=== PATIENT | male | born 1960 | race Caucasian/White ===

== ENCOUNTER 2019-07-10 00:06 | Day surgery (SDC) | payer OTHER, SELFPAY ==
[2019-07-01 14:40] VITALS: BMI 39.2
[2019-07-10 06:51] LABS: Glucose Point of Care 115 (65-105)
--- NOTE | 2019-07-10 06:51 | WPDANESEPPF ---
Anes - Initial Pre Proc Eval Procedure: Operation Date: 07/10/19 07:30 Proposed Procedures p Screening Colonoscopy - Otis Howell MD Date/Time: 07/10/19 06:51 Surgeon: Otis Howell MD Pre Op Diagnosis: Neoplasm Screening/ Hx Colon Polyps Patient Data Age: 59 Gender: M Height: 5 ft 11 in Weight: 127.4 kg Allergies Allergy/AdvReac Type Severity Reaction Status Date / Time No Known Allergies Allergy Unverified 07/10/19 06:33 Home Medications Medication Instructions Recorded Confirmed Type pen needle, diabetic 32 gauge x #400 each 04/26/19 05/17/19 Rx 5/32 blood sugar diagnostic #10 each 05/14/19 05/17/19 History blood-glucose meter,continuous #1 each 05/14/19 05/17/19 History blood-glucose sensor #3 each 05/14/19 05/17/19 History blood-glucose transmitter #1 each 05/14/19 05/17/19 Rx insulin aspart U-100 100 unit/mL 8 unit SUB-Q TID ml 05/14/19 07/01/19 History (3 mL) subcutaneous pen lancets 30 gauge #25 each 05/14/19 05/17/19 History multivitamin 1 tablet PO DAILY 05/14/19 07/01/19 History omega-3 fatty acids 1,000 mg 1,000 mg PO DAILY 05/14/19 05/17/19 History capsule esomeprazole magnesium 40 mg 40 mg PO DAILY #90 cap 06/19/19 07/01/19 Rx capsule,delayed release atorvastatin 10 mg tablet 10 mg PO DAILY #90 tablet 06/24/19 07/01/19 Rx lisinopril 2.5 mg tablet 2.5 mg PO DAILY #90 tablet 06/27/19 07/01/19 Rx azelastine 0.15 % (205.5 mcg) 2 spray NASAL DAILY #30 ml 07/01/19 07/01/19 Rx nasal spray insulin glargine [Basaglar KwikPen 37 unit SUBCUT DAILY 07/01/19 07/01/19 History U-100 Insulin] Patient hx anesthesia problems: none Family hx anesthesia problems: none PMFSH Past Medical History Medical History (Updated 07/10/19 @ 06:51 by Azeem Pisano MD) Allergies Asthma Biceps muscle tear Repair 2013 Broken nose 1979 Hyperlipidemia YANELI (obstructive sleep apnea) Type 2 diabetes mellitus Surgical History Surgical History History of rectal surgery 2001 Previous back surgery Family History Family History Sibling Patient's brother is in good health Father Family history unknown Mother Asthma Anxiety Other Cerebrovascular accident Social History Social History Smoking status: Current some day smoker Tobacco type: cigarettes Smoking end date: 06/12/17 Alcohol intake: current Substance use: never Anes - Eval Final PreProcedure Day of Procedure 07/10/19 06:51 Patient weight: obese Heart: regular rate and rhythm Lungs: decreased breath sounds Airway: Mallampati scale class II Neurological: alert and oriented Last oral intake: >/= 8 hours ASA classification: III Emergent: no Anesthetic plan: proceed Anesthesia type and monitoring: general GIVS and standard monitoring Informed Consent: The patient's anesthetic plan and its attendant risks and benefits were discussed with the patient/family/POA. Questions were solicited and answers provided to the satisfaction of the patient/family/POA.
[2019-07-10 06:54] VITALS: BP 131/84; PULSE 56; RESP 16; TEMP 36.1; O2SAT 99; BMI 39.3
[2019-07-10] MEDS: LACTATED RINGERS 1,000 ML 150 ML IV CONT (06:58)
--- NOTE | 2019-07-10 07:01 | PM.HPGS ---
History of Present Illness History of Present Illness Consent: Risks, benefits, and alternatives have been discussed and questions answered. Patient agrees to proceed with procedure. Chief complaint: Neoplasm Screening/ Hx Colon Polyps Narrative: Gen Conner is a 59 year old W male Undergoing screening colonoscopy secondary to history of colonic polyps. Patient had 2 adenomatous polyps removed 5 years ago. [facility] Past Medical History Medical History (Updated 07/10/19 @ 06:51 by Azeem Pisano MD) Allergies Asthma Biceps muscle tear Repair 2013 Broken nose 1979 Hyperlipidemia YANELI (obstructive sleep apnea) Type 2 diabetes mellitus Surgical History Surgical History History of rectal surgery 2001 Previous back surgery Family History Family History Sibling Patient's brother is in good health Father Family history unknown Mother Asthma Anxiety Other Cerebrovascular accident Social History Social History Smoking status: Current some day smoker Tobacco type: cigarettes Smoking end date: 06/12/17 Alcohol intake: current Substance use: never Meds Home Medications and Allergies Home Medications Medication Instructions Recorded Confirmed Type pen needle, diabetic 32 gauge x #400 each 04/26/19 05/17/19 Rx /32 blood sugar diagnostic #10 each 05/14/19 05/17/19 History blood-glucose meter,continuous #1 each 05/14/19 05/17/19 History blood-glucose sensor #3 each 05/14/19 05/17/19 History blood-glucose transmitter #1 each 05/14/19 05/17/19 Rx insulin aspart U-100 100 unit/mL 8 unit SUB-Q TID ml 05/14/19 07/10/19 History (3 mL) subcutaneous pen lancets 30 gauge #25 each 05/14/19 05/17/19 History multivitamin 1 tablet PO DAILY 05/14/19 07/01/19 History omega-3 fatty acids 1,000 mg 1,000 mg PO DAILY 05/14/19 07/10/19 History capsule esomeprazole magnesium 40 mg 40 mg PO DAILY #90 cap 06/19/19 07/01/19 Rx capsule,delayed release atorvastatin 10 mg tablet 10 mg PO DAILY #90 tablet 06/24/19 07/10/19 Rx lisinopril 2.5 mg tablet 2.5 mg PO DAILY #90 tablet 06/27/19 07/01/19 Rx azelastine 0.15 % (205.5 mcg) 2 spray NASAL DAILY #30 ml 07/01/19 07/01/19 Rx nasal spray insulin glargine [Noaglgamal ToddPen 37 unit SUBCUT DAILY 07/01/19 07/10/19 History U-100 Insulin] Allergies Allergy/AdvReac Type Severity Reaction Status Date / Time No Known Allergies Allergy Unverified 07/10/19 06:33 Vital Signs Vital Signs - 24 hr 07/10/19 06:54 Temperature 36.1 C L Pulse Rate 56 L Respiratory Rate 16 Blood Pressure 131/84 Pulse Oximetry 99 Exam Const: Orientation/consciousness: patient oriented x3 Resp: Auscultation: clear to auscultation bilaterally Cardio: Rate: regular rate Rhythm: regular rhythm Heart sounds: no murmurs GI: GI Palp: Yes Soft to palpation, No Tenderness to palpation present (GI), Yes No hepatosplenomegaly present and No Palpable mass present Auscultation: normal bowel sounds Neuro: General: patient oriented x3 and no focal motor deficits Extrem: General: no pedal edema Assessment and Plan Additional Plan Screening colonoscopy secondary history of colonic polyps
[2019-07-10 07:52] VITALS: BP 99/60; PULSE 52; RESP 18; O2SAT 97
[2019-07-10 08:02] VITALS: BP 125/67; PULSE 56; RESP 20; O2SAT 97
[2019-07-10 08:09] LABS: Glucose Point of Care 102 (65-105)
[2019-07-10 08:12] VITALS: BP 134/89; PULSE 49; RESP 20; O2SAT 100
== END 2019-07-10 08:28 | disposition home or self-care (01) ==
PROVIDERS: PCP Internal Medicine; Visit Provider Internal Medicine Gastroenterology
PROC: 0DJD8ZZ Inspection of Lower Intestinal Tract, Via Natural or Artificial Opening Endoscopic (ICD-10-PCS; CPT 45378; principal; 2019-07-10 07:30)
DX: Z12.11 Encounter for screening for malignant neoplasm of colon (principal); D12.2 Benign neoplasm of ascending colon; K64.1 Second degree hemorrhoids; K64.4 Residual hemorrhoidal skin tags; E78.5 Hyperlipidemia, unspecified; E11.9 Type 2 diabetes mellitus without complications; G47.33 Obstructive sleep apnea (adult) (pediatric); J45.909 Unspecified asthma, uncomplicated; Z79.4 Long term (current) use of insulin; F17.210 Nicotine dependence, cigarettes, uncomplicated; E66.9 Obesity, unspecified; Z68.39 Body mass index [BMI] 39.0-39.9, adult
CPT/HCPCS: 45380; 88305; J2704; J7120

== ENCOUNTER 2020-08-17 08:18 | Outpatient (CLI) | payer OTHER, SELFPAY | END 2020-08-17 08:19 | disposition home or self-care (01) | LOC: ANHCOVIDVC 08:18 | PROVIDERS: PCP Internal Medicine | DX: Z23 Encounter for immunization (principal) | CPT/HCPCS: 0001A; 91300 ==

== ENCOUNTER 2020-09-07 08:16 | Outpatient (CLI) | payer OTHER, SELFPAY | END 2020-09-07 08:17 | disposition home or self-care (01) | LOC: ANHCOVIDVC 08:16 | PROVIDERS: PCP Internal Medicine | DX: Z23 Encounter for immunization (principal) | CPT/HCPCS: 0002A; 91300 ==

== ENCOUNTER 2021-12-29 07:32 | Outpatient (CLI) | payer BC, SELFPAY ==
--- NOTE | ~2021-12-29 | CT_ITS ---
EXAMINATION:CT lung screening DATE: 12/29/2021 07:59 INDICATION: Tobacco use. Current smoker with 35 pack year history. TECHNIQUE: Computed tomography (CT) of the chest was performed without intravenous contrast. Automate d exposure control and iterative reconstruction technique were employed. The dose-length product (DLP ) was 420.23 mGy-cm. COMPARISON: None. FINDINGS: The lungs demonstrate minimal atelectasis. No pleural effusion. The heart size is normal. N o pericardial effusion. There are coronary artery calcifications. There is a 19 mm mass in left adren al gland measuring low-attenuation, consistent with an adenoma. There is mild thoracic spondylosis. IMPRESSION: 1. Lung-RADS category 1: Negative. Continue annual screening with noncontrast low-dose chest CT in 12 months. Reviewed, dictated and finalized at location A. IMPRESSION: 1. Lung-RADS category 1: Negative. Continue annual screening with noncontrast l ow-dose chest CT in 12 months.
== END 2021-12-29 07:33 | disposition home or self-care (01) ==
PROVIDERS: PCP Internal Medicine; Visit Provider Nurse Practitioner
DX: Z12.2 Encounter for screening for malignant neoplasm of respiratory organs (principal); Z87.891 Personal history of nicotine dependence
CPT/HCPCS: 71271

== ENCOUNTER 2023-12-22 07:50 | Outpatient (CLI) | payer BC, SELFPAY ==
--- NOTE | ~2023-12-22 | CT_ITS ---
CT of the Abdomen and Pelvis: Indication: Left adrenal adenoma Technique: 2.5 mm axial scans were obtained through the abdomen and pelvis prior to and following in travenous administration of 100 cc of Omnipaque 350. Dose reduction technique was used on this scan b y utilizing automated exposure control and iterative reconstruction technique. The dose-length produc t (DLP) was 2971.75 mGy-cm. Findings: Scans through the lung bases are unremarkable. There is diffuse hepatic steatosis probably present. The spleen, pancreas, gallbladder, right adrenal gland, and kidneys are within normal limits. 2.2 cm left adrenal nodule demonstrates Hounsfield unit s of 1 on precontrast images, compatible with benign adenoma. No evidence of aortic aneurysm. No lym phadenopathy. No bowel obstruction or bowel wall thickening. There is no evidence to suggest acute appendicitis. Images through the pelvis were performed. Urinary bladder unremarkable. No pelvic mass seen. No ascit es. Impression: 2.2 cm left adrenal adenoma. Reviewed, dictated and finalized at location . Impression: 2.2 cm left adrenal adenoma.
== END 2023-12-22 07:51 | disposition home or self-care (01) ==
PROVIDERS: PCP Internal Medicine; Visit Provider Internal Medicine Endocrinology, Diabetes & Metabolism
DX: E27.8 Other specified disorders of adrenal gland (principal); D35.02 Benign neoplasm of left adrenal gland
CPT/HCPCS: 74178; Q9967